=== PATIENT | male | born 1955 | race Caucasian/White ===

== ENCOUNTER → 2017-11-17 | Outpatient (CLI) | payer OTHER ==
[~2017-11-17] MED LIST: ALLO300 PO
[2017-11-17 13:36] LABS: Alanine Aminotransfer (ALT/SGP 16 U/L (12-78); Albumin, Blood 3.4 g/dL (3.4-5.0); Albumin/Globulin Ratio 0.8 (0.8-1.8); Alk Phos 81 U/L (50-136); Anion Gap 9 mmol/L (6-16); Aspartate Aminotrans (AST/SGOT 14 U/L (12-37); Bilirubin, Total 0.5 mg/dL (0.1-1.0); Blood Urea Nitrogen 15 mg/dL (8-24); Bun/Creatinine Ratio 20.1 (12.0-20.0); CO2, Blood 24 mmol/L (21-32); Chloride, Blood 107 mmol/L (98-108); Creatinine, Blood 0.75 mg/dL (0.60-1.20); Globulin, Blood 4.2 g/dL (2.2-4.0); Glomerular Filtration Rate >60 (60-); Glucose, Blood 95 mg/dL (70-99); Lactate Dehydrogenase (Ld),Bld 225 U/L (100-240); Magnesium, Blood 2.1 mg/dL (1.6-2.4); Potassium, Blood 4.4 mmol/L (3.5-5.5); Sodium, Blood 140 mmol/L (136-145); Total Protein, Blood 7.6 g/dL (6.4-8.2)
== END ==
LOC: LAB SHORT 12:45
PROVIDERS: Internal Medicine Hematology & Oncology
DX: C85.10 Unspecified B-cell lymphoma, unspecified site (principal)
CPT/HCPCS: 80053; 83615; 83735

== ENCOUNTER → 2017-12-16 | Outpatient (CLI) | payer OTHER ==
[2017-12-16 17:18] LABS: Free Thyroxine 0.9 ng/dL (0.70-1.60); Thyroid Stimulating Hormone 7.42 uIU/mL (0.360-4.800)
[2017-12-17 18:23] LABS: IgG 249 mg/dL (758-1612); IgM 2940 mg/dL (40-230)
[2017-12-17 18:40] LABS: IgA 13 mg/dL (71-397)
[2017-12-19 12:21] LABS: Albumin 3.5 g/dL (3.3-4.8); Monoclonal Protein 1.9 g/dL; Monoclonal Protien % 25.2 %; Protein, Total 7.6 g/dL (6.1-7.8)
[2017-12-20 09:04] LABS: Viscosity 1.7 cP (1.1-1.8)
== END ==
LOC: LAB SHORT 10:30
PROVIDERS: Internal Medicine Hematology & Oncology
DX: C85.10 Unspecified B-cell lymphoma, unspecified site (principal); C88.0 Waldenstrom macroglobulinemia; R53.81 Other malaise
CPT/HCPCS: 36415; 82784; 84165; 84439; 84443; 85810

== ENCOUNTER → 2018-03-17 | Outpatient (CLI) | payer OTHER ==
[2018-03-17 16:55] LABS: Alanine Aminotransfer (ALT/SGP 20 U/L (12-78); Albumin, Blood 3.6 g/dL (3.4-5.0); Albumin/Globulin Ratio 0.8 (0.8-1.8); Alk Phos 90 U/L (50-136); Anion Gap 5 mmol/L (6-16); Aspartate Aminotrans (AST/SGOT 14 U/L (12-37); Bilirubin, Total 0.5 mg/dL (0.1-1.0); Blood Urea Nitrogen 14 mg/dL (8-24); Bun/Creatinine Ratio 15.3 (12.0-20.0); CO2, Blood 28 mmol/L (21-32); Calcium, Blood 9.2 mg/dL (8.5-10.1); Chloride, Blood 105 mmol/L (98-108); Creatinine, Blood 0.91 mg/dL (0.60-1.20); Globulin, Blood 4.6 g/dL (2.2-4.0); Glomerular Filtration Rate >60 (60-); Glucose, Blood 82 mg/dL (70-99); Potassium, Blood 4.3 mmol/L (3.5-5.5); Sodium, Blood 138 mmol/L (136-145); Total Protein, Blood 8.2 g/dL (6.4-8.2)
== END | disposition home or self-care (01) ==
LOC: LAB 10:36 → LAB SHORT 10:36
PROVIDERS: Internal Medicine Hematology & Oncology
DX: C88.0 Waldenstrom macroglobulinemia (principal)
CPT/HCPCS: 80053; 85810

== ENCOUNTER → 2018-03-27 | Outpatient (CLI) | payer OTHER ==
[2018-03-29 05:50] LABS: IMMUNOGLOBULIN A, QN, SERUM 13 mg/dL (61-437); IMMUNOGLOBULIN M, QN, SERUM 3737 mg/dL (20-172)
[2018-03-29 15:08] LABS: IMMUNOGLOBULIN G, QN, SERUM 245 mg/dL (700-1600)
== END ==
LOC: LAB SHORT 10:00 → LAB 10:00
PROVIDERS: Internal Medicine Hematology & Oncology
DX: C88.0 Waldenstrom macroglobulinemia (principal)
CPT/HCPCS: 82784; 82787

== ENCOUNTER → 2018-05-25 | Outpatient (CLI) | payer OTHER ==
[2018-05-25 18:46] LABS: Alanine Aminotransfer (ALT/SGP 15 U/L (12-78); Albumin, Blood 3.5 g/dL (3.4-5.0); Albumin/Globulin Ratio 0.9 (0.8-1.8); Alk Phos 79 U/L (50-136); Anion Gap 6 mmol/L (6-16); Aspartate Aminotrans (AST/SGOT 23 U/L (12-37); Bilirubin, Total 0.8 mg/dL (0.1-1.0); Blood Urea Nitrogen 14 mg/dL (8-24); Bun/Creatinine Ratio 17.1 (12.0-20.0); CO2, Blood 27 mmol/L (21-32); Calcium, Blood 8.9 mg/dL (8.5-10.1); Chloride, Blood 108 mmol/L (98-108); Creatinine, Blood 0.82 mg/dL (0.60-1.20); Globulin, Blood 4.1 g/dL (2.2-4.0); Glomerular Filtration Rate >60 (60-); Glucose, Blood 94 mg/dL (70-99); Sodium, Blood 141 mmol/L (136-145); Total Protein, Blood 7.6 g/dL (6.4-8.2)
== END | disposition home or self-care (01) ==
LOC: LAB SHORT 08:55 → LAB 08:55
PROVIDERS: Internal Medicine Hematology & Oncology
DX: C88.0 Waldenstrom macroglobulinemia (principal)
CPT/HCPCS: 80053

== ENCOUNTER → 2018-06-20 | Outpatient (CLI) | payer OTHER ==
[2018-06-20 17:13] LABS: Alanine Aminotransfer (ALT/SGP 21 U/L (12-78); Albumin, Blood 3.4 g/dL (3.4-5.0); Albumin/Globulin Ratio 0.9 (0.8-1.8); Alk Phos 78 U/L (50-136); Anion Gap 10 mmol/L (6-16); Aspartate Aminotrans (AST/SGOT 16 U/L (12-37); Bilirubin, Total 0.3 mg/dL (0.1-1.0); Blood Urea Nitrogen 12 mg/dL (8-24); Bun/Creatinine Ratio 14.9 (12.0-20.0); CO2, Blood 23 mmol/L (21-32); Calcium, Blood 8.6 mg/dL (8.5-10.1); Chloride, Blood 108 mmol/L (98-108); Creatinine, Blood 0.81 mg/dL (0.60-1.20); Globulin, Blood 3.7 g/dL (2.2-4.0); Glomerular Filtration Rate >60 (60-); Glucose, Blood 87 mg/dL (70-99); Sodium, Blood 141 mmol/L (136-145); Total Protein, Blood 7.1 g/dL (6.4-8.2)
[2018-06-22 06:15] LABS: IMMUNOGLOBULIN A, QN, SERUM 10 mg/dL (61-437); IMMUNOGLOBULIN G, QN, SERUM 200 mg/dL (700-1600); IMMUNOGLOBULIN M, QN, SERUM 2437 mg/dL (20-172)
[2018-06-23 13:09] LABS: IMMUNOGLOBULIN G, QN, SERUM 222 mg/dL (700-1600)
== END | disposition home or self-care (01) ==
LOC: LAB SHORT 14:20 → LAB 14:20
PROVIDERS: Internal Medicine Hematology & Oncology
DX: C88.0 Waldenstrom macroglobulinemia (principal)
CPT/HCPCS: 80053; 82784

== ENCOUNTER → 2018-07-19 | Outpatient (CLI) | payer OTHER ==
[2018-07-21 06:14] LABS: IMMUNOGLOBULIN A, QN, SERUM 10 mg/dL (61-437); IMMUNOGLOBULIN G, QN, SERUM 166 mg/dL (700-1600); IMMUNOGLOBULIN M, QN, SERUM 2069 mg/dL (20-172)
== END | disposition home or self-care (01) ==
LOC: LAB 15:35 → LAB SHORT 15:35
PROVIDERS: Internal Medicine Hematology & Oncology
DX: C88.0 Waldenstrom macroglobulinemia (principal)
CPT/HCPCS: 82784; 82787; 85810

== ENCOUNTER → 2018-08-09 | Outpatient (CLI) | payer OTHER ==
[2018-08-11 07:16] LABS: IMMUNOGLOBULIN A, QN, SERUM 11 mg/dL (61-437); IMMUNOGLOBULIN G, QN, SERUM 166 mg/dL (700-1600); IMMUNOGLOBULIN M, QN, SERUM 1979 mg/dL (20-172)
== END | disposition home or self-care (01) ==
LOC: LAB 10:00 → LAB SHORT 10:00
PROVIDERS: Internal Medicine Hematology & Oncology
DX: C88.0 Waldenstrom macroglobulinemia (principal)
CPT/HCPCS: 82784

== ENCOUNTER → 2018-12-13 | Outpatient (CLI) | payer OTHER ==
[2018-12-13 16:55] LABS: Alanine Aminotransfer (ALT/SGP 24 U/L (12-78); Albumin, Blood 3.8 g/dL (3.4-5.0); Albumin/Globulin Ratio 1.2 (0.8-1.8); Alk Phos 93 U/L (50-136); Anion Gap 7 mmol/L (6-16); Aspartate Aminotrans (AST/SGOT 14 U/L (12-37); Bilirubin, Total 0.6 mg/dL (0.1-1.0); Blood Urea Nitrogen 15 mg/dL (8-24); Bun/Creatinine Ratio 16.7 (12.0-20.0); CO2, Blood 24 mmol/L (21-32); Calcium, Blood 8.7 mg/dL (8.5-10.1); Chloride, Blood 107 mmol/L (98-108); Globulin, Blood 3.1 g/dL (2.2-4.0); Glomerular Filtration Rate >60 (60-); Glucose, Blood 95 mg/dL (70-99); Potassium, Blood 4.5 mmol/L (3.5-5.5); Sodium, Blood 138 mmol/L (136-145); Total Protein, Blood 6.9 g/dL (6.4-8.2)
[2018-12-15 07:10] LABS: IMMUNOGLOBULIN G, QN, SERUM 202 mg/dL (700-1600); IMMUNOGLOBULIN M, QN, SERUM 1871 mg/dL (20-172)
== END | disposition home or self-care (01) ==
LOC: LAB 15:07 → LAB SHORT 15:07
PROVIDERS: Internal Medicine Hematology & Oncology
DX: C88.0 Waldenstrom macroglobulinemia (principal)
CPT/HCPCS: 80053; 82784

== ENCOUNTER → 2019-03-14 | Outpatient (CLI) | payer OTHER ==
[2019-03-14 18:53] LABS: Alanine Aminotransfer (ALT/SGP 26 U/L (12-78); Albumin/Globulin Ratio 1.2 (0.8-1.8); Alk Phos 112 U/L (50-136); Anion Gap 3 mmol/L (6-16); Aspartate Aminotrans (AST/SGOT 14 U/L (12-37); Bilirubin, Total 0.7 mg/dL (0.1-1.0); Blood Urea Nitrogen 14 mg/dL (8-24); Bun/Creatinine Ratio 18.2 (12.0-20.0); CO2, Blood 30 mmol/L (21-32); Calcium, Blood 9.6 mg/dL (8.5-10.1); Chloride, Blood 106 mmol/L (98-108); Creatinine, Blood 0.77 mg/dL (0.60-1.20); Globulin, Blood 3.4 g/dL (2.2-4.0); Glomerular Filtration Rate >60 (60-); Glucose, Blood 80 mg/dL (70-99); Potassium, Blood 4.7 mmol/L (3.5-5.5); Sodium, Blood 139 mmol/L (136-145); Total Protein, Blood 7.4 g/dL (6.4-8.2)
== END | disposition home or self-care (01) ==
LOC: LAB 18:07 → LAB SHORT 18:07
PROVIDERS: Internal Medicine Hematology & Oncology
DX: C85.10 Unspecified B-cell lymphoma, unspecified site (principal)
CPT/HCPCS: 80053

== ENCOUNTER → 2019-05-16 | Outpatient (CLI) | payer OTHER ==
[2019-05-18 06:08] LABS: IMMUNOGLOBULIN A, QN, SERUM 14 mg/dL (61-437); IMMUNOGLOBULIN G, QN, SERUM 309 mg/dL (700-1600); IMMUNOGLOBULIN M, QN, SERUM 2014 mg/dL (20-172)
== END | disposition home or self-care (01) ==
LOC: LAB 15:30 → LAB SHORT 15:30
PROVIDERS: Internal Medicine Hematology & Oncology
DX: C88.0 Waldenstrom macroglobulinemia (principal)
CPT/HCPCS: 82784; 85810

== ENCOUNTER → 2019-06-20 | Outpatient (CLI) | payer OTHER ==
[2019-06-21 05:08] LABS: IMMUNOGLOBULIN A, QN, SERUM 13 mg/dL (61-437); IMMUNOGLOBULIN G, QN, SERUM 288 mg/dL (700-1600); IMMUNOGLOBULIN M, QN, SERUM 1976 mg/dL (20-172)
[2019-06-24 20:05] LABS: IMMUNOGLOBULIN G, QN, SERUM 281 mg/dL (700-1600)
== END | disposition home or self-care (01) ==
LOC: LAB 10:16 → LAB SHORT 10:16
PROVIDERS: Internal Medicine Hematology & Oncology
DX: C88.0 Waldenstrom macroglobulinemia (principal)
CPT/HCPCS: 82784; 82787

== ENCOUNTER → 2019-08-07 | Outpatient (CLI) | payer OTHER ==
[2019-08-09 06:08] LABS: IMMUNOGLOBULIN A, QN, SERUM 11 mg/dL (61-437); IMMUNOGLOBULIN G, QN, SERUM 241 mg/dL (700-1600); IMMUNOGLOBULIN M, QN, SERUM 1832 mg/dL (20-172)
== END | disposition home or self-care (01) ==
LOC: LAB 15:20 → LAB SHORT 15:20
PROVIDERS: Internal Medicine Hematology & Oncology
DX: C85.10 Unspecified B-cell lymphoma, unspecified site (principal)
CPT/HCPCS: 82784; 85810

== ENCOUNTER → 2019-09-03 | Outpatient (CLI) | payer OTHER ==
[2019-09-03 16:51] LABS: Magnesium, Blood 1.9 mg/dL (1.6-2.4)
[2019-09-03 16:52] LABS: Alanine Aminotransfer (ALT/SGP 24 U/L (12-78); Albumin, Blood 3.6 g/dL (3.4-5.0); Albumin/Globulin Ratio 1.2 (0.8-1.8); Alk Phos 91 U/L (50-136); Anion Gap 5 mmol/L (6-16); Aspartate Aminotrans (AST/SGOT 19 U/L (12-37); Bilirubin, Total 0.7 mg/dL (0.1-1.0); Blood Urea Nitrogen 13 mg/dL (8-24); Bun/Creatinine Ratio 16.5 (12.0-20.0); CO2, Blood 28 mmol/L (21-32); Calcium, Blood 9.2 mg/dL (8.5-10.1); Chloride, Blood 105 mmol/L (98-108); Creatinine, Blood 0.79 mg/dL (0.60-1.20); Globulin, Blood 3.1 g/dL (2.2-4.0); Glomerular Filtration Rate >60 (60-); Glucose, Blood 80 mg/dL (70-99); Potassium, Blood 4.8 mmol/L (3.5-5.5); Sodium, Blood 138 mmol/L (136-145); Total Protein, Blood 6.7 g/dL (6.4-8.2)
== END | disposition home or self-care (01) ==
LOC: LAB 13:55 → LAB SHORT 13:55
PROVIDERS: Internal Medicine Hematology & Oncology
DX: C88.0 Waldenstrom macroglobulinemia (principal)
CPT/HCPCS: 80053; 83735

== ENCOUNTER → 2020-01-10 | Outpatient (CLI) | payer OTHER ==
[2020-01-10 16:08] LABS: Alanine Aminotransfer (ALT/SGP 14 U/L (12-78); Albumin, Blood 3.7 g/dL (3.4-5.0); Albumin/Globulin Ratio 1.2 (0.8-1.8); Alk Phos 106 U/L (50-136); Anion Gap 3 mmol/L (6-16); Aspartate Aminotrans (AST/SGOT 9 U/L (12-37); Bilirubin, Total 0.3 mg/dL (0.1-1.0); Blood Urea Nitrogen 14 mg/dL (8-24); Bun/Creatinine Ratio 19.2 (12.0-20.0); CO2, Blood 27 mmol/L (21-32); Calcium, Blood 9.2 mg/dL (8.5-10.1); Chloride, Blood 107 mmol/L (98-108); Creatinine, Blood 0.73 mg/dL (0.60-1.20); Glomerular Filtration Rate >60 (60-); Glucose, Blood 84 mg/dL (70-99); Potassium, Blood 4.6 mmol/L (3.5-5.5); Sodium, Blood 137 mmol/L (136-145); Total Protein, Blood 6.7 g/dL (6.4-8.2)
[2020-01-12 05:09] LABS: IMMUNOGLOBULIN A, QN, SERUM 18 mg/dL (61-437); IMMUNOGLOBULIN G, QN, SERUM 371 mg/dL (700-1600); IMMUNOGLOBULIN M, QN, SERUM 975 mg/dL (20-172)
== END | disposition home or self-care (01) ==
LOC: LAB SHORT 11:00 → LAB 11:00
PROVIDERS: Internal Medicine Hematology & Oncology
DX: C88.0 Waldenstrom macroglobulinemia (principal)
CPT/HCPCS: 80053

== ENCOUNTER → 2020-07-18 | Outpatient (CLI) | payer OTHER ==
[2020-07-18 10:36] LABS: BASOPHILS ABSOLUTE AUTO 0.02 K/mm3 (0.00-0.23); BASOPHILS PERCENT AUTO 0 % (0-2); EOSINOPHILS ABSOLUTE AUTO 0.06 K/mm3 (0.00-0.68); EOSINOPHILS PERCENT AUTO 1 % (0-6); Hematocrit 50.4 % (37.0-53.0); Hemoglobin 16.8 g/dL (13.5-17.5); IMMATURE GRAN ABSOLUTE AUTO 0.03 K/mm3 (0.00-0.10); IMMATURE GRAN PERCENT AUTO 0 % (0-1); LYMPHOCYTES ABSOLUTE AUTO 1.27 K/mm3 (0.84-5.20); LYMPHOCYTES PERCENT AUTO 14 % (21-46); MONOCYTES ABSOLUTE AUTO 1.16 K/mm3 (0.16-1.47); MONOCYTES PERCENT AUTO 13 % (4-13); Mean Corpuscular HGB 32.7 pg (26.0-34.0); Mean Corpuscular HGB Conc 33.3 g/dL (31.5-36.5); Mean Corpuscular Volume 98 fL (80-100); NEUTROPHILS ABSOLUTE AUTO 6.77 K/mm3 (1.96-9.15); NEUTROPHILS PERCENT AUTO 73 % (41-73); RDW Coefficient Variation 13.1 % (11.7-14.2); RDW Standard Deviation 47.1 fL (35.1-46.3); Red Blood Cell Count 5.14 M/mm3 (4.30-5.90); White Blood Cell Count 9.31 K/mm3 (4.00-11.30)
[2020-07-18 10:47] LABS: Alanine Aminotransfer (ALT/SGP 24 U/L (12-78); Albumin, Blood 3.9 g/dL (3.4-5.0); Alk Phos 114 U/L (40-126); Anion Gap 9 mmol/L (6-16); Aspartate Aminotrans (AST/SGOT 11 U/L (12-37); Bilirubin, Total 0.3 mg/dL (0.1-1.0); Blood Urea Nitrogen 15 mg/dL (8-24); Bun/Creatinine Ratio 16.5 (12.0-20.0); CO2, Blood 26 mmol/L (21-32); Calcium, Blood 9.2 mg/dL (8.5-10.1); Chloride, Blood 103 mmol/L (98-108); Creatinine, Blood 0.91 mg/dL (0.60-1.20); Globulin, Blood 3.8 g/dL (2.2-4.0); Glomerular Filtration Rate >60 (60-); Glucose, Blood 104 mg/dL (70-99); Potassium, Blood 4.4 mmol/L (3.5-5.5); Sodium, Blood 138 mmol/L (136-145); Total Protein, Blood 7.7 g/dL (6.4-8.2)
[2020-07-18 10:52] LABS: Mean Platelet Volume 10.3 fL (9.1-12.4)
[2020-07-18 11:38] LABS: Platelet Count 125 K/mm3 (150-400)
== END | disposition home or self-care (01) ==
LOC: LAB SHORT 10:31 → LAB EV 10:31
PROVIDERS: Physician Assistant
DX: L03.211 Cellulitis of face (principal)
CPT/HCPCS: 80053; 85025

== ENCOUNTER → 2020-08-21 | Outpatient (CLI) | payer OTHER ==
[2020-08-21 15:55] LABS: Alanine Aminotransfer (ALT/SGP 23 U/L (12-78); Albumin/Globulin Ratio 1.4 (0.8-1.8); Alk Phos 102 U/L (50-136); Anion Gap 6 mmol/L (6-16); Aspartate Aminotrans (AST/SGOT 15 U/L (12-37); Bilirubin, Total 0.5 mg/dL (0.1-1.0); Blood Urea Nitrogen 12 mg/dL (8-24); Bun/Creatinine Ratio 14.4 (12.0-20.0); CO2, Blood 27 mmol/L (21-32); Chloride, Blood 108 mmol/L (98-108); Creatinine, Blood 0.84 mg/dL (0.60-1.20); Globulin, Blood 2.8 g/dL (2.2-4.0); Glomerular Filtration Rate >60 (60-); Glucose, Blood 94 mg/dL (70-99); Potassium, Blood 4.7 mmol/L (3.5-5.5); Sodium, Blood 141 mmol/L (136-145); Thyroxine (T4) 9.8 ug/dL (4.5-12.1); Total Protein, Blood 6.8 g/dL (6.4-8.2)
== END | disposition home or self-care (01) ==
LOC: LAB 13:35 → LAB SHORT 13:35
PROVIDERS: Internal Medicine Hematology & Oncology
DX: C85.10 Unspecified B-cell lymphoma, unspecified site (principal)
CPT/HCPCS: 80053; 82787; 84100; 84436; 84443; 85810

== ENCOUNTER → 2021-04-16 | Outpatient (CLI) | payer OTHER ==
[2021-04-16 21:15] LABS: Alanine Aminotransfer (ALT/SGP 23 U/L (12-78); Albumin/Globulin Ratio 1.2 (0.8-1.8); Alk Phos 96 U/L (50-136); Anion Gap 6 mmol/L (6-16); Aspartate Aminotrans (AST/SGOT 20 U/L (12-37); Bilirubin, Total 0.6 mg/dL (0.1-1.0); Blood Urea Nitrogen 14 mg/dL (8-24); Bun/Creatinine Ratio 15.5 (12.0-20.0); CO2, Blood 24 mmol/L (21-32); Calcium, Blood 9.3 mg/dL (8.5-10.1); Chloride, Blood 108 mmol/L (98-108); Creatinine, Blood 0.91 mg/dL (0.60-1.20); Globulin, Blood 3.3 g/dL (2.2-4.0); Glomerular Filtration Rate >60 (60-); Glucose, Blood 84 mg/dL (70-99); Phosphorus, Blood 3.9 mg/dL (2.5-4.9); Potassium, Blood 5.1 mmol/L (3.5-5.5); Sodium, Blood 138 mmol/L (136-145); Total Protein, Blood 7.3 g/dL (6.4-8.2)
[2021-04-18 08:09] LABS: IMMUNOGLOBULIN A, QN, SERUM 9 mg/dL (61-437); IMMUNOGLOBULIN G, QN, SERUM 268 mg/dL (603-1613); IMMUNOGLOBULIN M, QN, SERUM 1221 mg/dL (20-172)
== END | disposition home or self-care (01) ==
LOC: LAB 20:01 → LAB SHORT 20:01
PROVIDERS: Internal Medicine Hematology & Oncology
DX: C85.10 Unspecified B-cell lymphoma, unspecified site (principal)
CPT/HCPCS: 80053; 82784; 84100; 85810

== ENCOUNTER → 2021-07-24 | Outpatient (CLI) | payer OTHER ==
[2021-07-28 16:15] LABS: A/G RATIO 1.2 (0.7-1.7); ALBUMIN 3.7 g/dL (2.9-4.4); ALPHA-1-GLOBULIN 0.2 g/dL (0.0-0.4); ALPHA-2-GLOBULIN 0.7 g/dL (0.4-1.0); GAMMA GLOBULIN 1.2 g/dL (0.4-1.8); GLOBULIN, TOTAL 3.2 g/dL (2.2-3.9); IMMUNOGLOBULIN A, QN, SERUM 13 mg/dL (61-437); IMMUNOGLOBULIN G, QN, SERUM 243 mg/dL (603-1613); IMMUNOGLOBULIN M, QN, SERUM 1582 mg/dL (20-172); M-SPIKE 0.7 g/dL (Not Observed); PROTEIN, TOTAL, SERUM 6.9 g/dL (6.0-8.5)
== END | disposition home or self-care (01) ==
LOC: LAB 14:55 → LAB SHORT 14:55
PROVIDERS: Internal Medicine Hematology & Oncology
DX: C85.10 Unspecified B-cell lymphoma, unspecified site (principal)
CPT/HCPCS: 82784; 84165; 86334

== ENCOUNTER 2022-06-01 06:15 | Day surgery (SDC) | payer OTHER ==
[~2022-06-01] VITALS: Ht 177.8 cm; Wt 78.8 kg
[~2022-06-01 06:15] MED LIST changes: +Acetaminophen650 M1 PO; +DICL75ER PO
--- NOTE | 2022-06-01 07:25 | NUR ---
CLIP DONE ON ABDOMEN. PATIENT HAS A TINY RASH FROM TRUSS AND UNDERWEAR. Ambulatory in Day Surgery. History, Chart, Medications and Allergies reviewed before start of procedure. Patient confirms NPO status and agrees with scheduled surgery. Patient States Post-Procedure ride home has been arranged.
--- NOTE | 2022-06-01 09:02 | NUR ---
06/01/22 0902 Sarina Du PRIOR TO PREPPING PATIENTS ABDOMEN NOTED REDNESS AND IRRITATION FROM BELOW THE NIPPLE LINE TO THE GROIN POSSIBLY FROM SHAVING PRIOR TO ARRIVING IN THE OR, NOTIFIED.
--- NOTE | 2022-06-01 11:55 | NUR ---
VERBALIZED UNDERSTANDING OF DC INSTRUCTIONS. REPORT TO LAURENT RANGEL.
--- NOTE | 2022-06-01 12:20 | NUR ---
PATIENT UP TO BR WITH STEADY GAIT. TOLERATED PO FLUIDS WELL. DENIES NAUSEA. C/O 3/10 PAIN TO LEFT GROIN. INCISION SITES X3 TO ABD NOTED TO BE CLEAR WITH DERMABOND CLOSURE. NO VISIBLE DRAINAGE, SWELLING, ERYTHEMA OR BRUISING NOTED. PATIENT STATES HE IS "PRETTY CLOSE" TO FEELING LIKE HE WANTS TO DISCHARGE HOME. PATIENT REPORTS THAT HE WAS ABLE TO URINATE IN BR.
--- NOTE | 2022-06-01 12:22 | NUR ---
Discharge instructions reviewed with patient. Patient verbalizes understanding. Copy given to patient to take home. Patient States Post-Procedure ride home has been arranged with his .
--- NOTE | 2022-06-01 12:45 | NUR ---
1240- PATIENT STATES HE IS READY TO DISCHARGE HOME. AT BEDSIDE. VSS.
== END 2022-06-01 12:45 | disposition home or self-care (01) ==
LOC: ORSCMMR 06:15 → ORD 07:30 → ORSCMMR 07:30
PROVIDERS: Surgery
PROC: 0YU64JZ Supplement Left Inguinal Region with Synthetic Substitute, Percutaneous Endoscopic Approach (ICD-10-PCS; principal; 2022-06-01 08:15)
PROC: 8E0W4CZ Robotic Assisted Procedure of Trunk Region, Percutaneous Endoscopic Approach (ICD-10-PCS; principal; 2022-06-01 08:15)
DX: K40.90 Unilateral inguinal hernia, without obstruction or gangrene, not specified as recurrent (principal); F17.210 Nicotine dependence, cigarettes, uncomplicated; D64.9 Anemia, unspecified; D61.818 Other pancytopenia
CPT/HCPCS: 49650; S2900; C1781; J0690; J1100; J2250; J2405; J2704; J2795; J3010; J7120

== ENCOUNTER 2025-01-28 09:11 | Day surgery (SDC) | payer MEDICARE ==
[2025-01-29 15:29] LABS: Mean Corpuscular HGB 33.6 pg (26.0-34.0); Mean Corpuscular HGB Conc 32.4 g/dL (31.5-36.5); Mean Corpuscular Volume 104 fL (80-100); Mean Platelet Volume 10.6 fL (9.1-12.4); NRBC ABSOLUTE 0.02 K/mm3 (0.00-0.02); RDW Coefficient Variation 21.9 % (11.7-14.2); RDW Standard Deviation 78.3 fL (35.1-46.3); White Blood Cell Count 1.96 K/mm3 (4.00-11.30)
[2025-01-29 15:35] LABS: Hematocrit 14.5 % (37.0-53.0); Hemoglobin 4.7 g/dL (13.5-17.5)
[2025-01-29 15:36] LABS: Platelet Count 19 K/mm3 (150-400)
[2025-01-29 15:59] LABS: BAND PERCENT MAN 1 % (0-8); BASOPHILS PERCENT MAN 0 % (0-2); EOSINOPHILS ABSOLUTE MAN 0.01 K/mm3 (0.00-0.68); EOSINOPHILS PERCENT MAN 1 % (0-6); LYMPHOCYTES ABSOLUTE MAN 0.86 K/mm3 (0.84-5.20); LYMPHOCYTES PERCENT MAN 44 % (21-46); METAMYELOCYTE ABSOLUTE MAN 0.01 K/mm3 (0.00-0.00); METAMYELOCYTE PERCENT MAN 1 % (0-0); MONOCYTES ABSOLUTE MAN 0.11 K/mm3 (0.16-1.47); MONOCYTES PERCENT MAN 6 % (4-13); NEUTROPHILS ABSOLUTE MAN 0.94 K/mm3 (1.96-9.15); SEG NEUTROPHILS PERCENT MAN 47 % (41-73); TOTAL CELLS COUNTED 100
[2025-01-30] MEDS ORDERED: Diclofenac Sodi50 MG PO (13:58)
== END 2025-01-29 22:56 | disposition home or self-care (01) ==
LOC: ORSCMMR 09:11 → LAB 09:11 → LAB SHORT 09:11 → ORSCMMR 09:12 → EDSTATUS 16:37 → ORSCMMR 01-29 22:56 → LAB 01-29 22:56
PROVIDERS: Internal Medicine Hematology & Oncology
DX: C85.10 Unspecified B-cell lymphoma, unspecified site (principal)
CPT/HCPCS: 36415; 85025; 86850; 86900; 86901

== ENCOUNTER 2025-01-29 18:38 | Observation (INO) | payer MEDICARE ==
[~2025-01-29] VITALS: Ht 177.8 cm; Wt 69.3 kg
[2025-01-29 19:23] LABS: Mean Corpuscular HGB 32.7 pg (26.0-34.0); Mean Corpuscular HGB Conc 32.5 g/dL (31.5-36.5); Mean Corpuscular Volume 101 fL (80-100); Mean Platelet Volume 10.1 fL (9.1-12.4); NRBC ABSOLUTE 0.02 K/mm3 (0.00-0.02); NRBC Auto 1.1 /100 WBC (0.0-0.2); RDW Coefficient Variation 22.3 % (11.7-14.2); White Blood Cell Count 1.89 K/mm3 (4.00-11.30)
[2025-01-29 19:26] LABS: Hematocrit 15.1 % (37.0-53.0)
[2025-01-29 19:27] LABS: Hemoglobin 4.9 g/dL (13.5-17.5); Platelet Count 21 K/mm3 (150-400)
[2025-01-29 19:41] LABS: BASOPHILS PERCENT MAN 0 % (0-2); EOSINOPHILS PERCENT MAN 0 % (0-6); LYMPHOCYTES ABSOLUTE MAN 0.69 K/mm3 (0.84-5.20); LYMPHOCYTES PERCENT MAN 37 % (21-46); MONOCYTES ABSOLUTE MAN 0.13 K/mm3 (0.16-1.47); MONOCYTES PERCENT MAN 7 % (4-13); NEUTROPHILS ABSOLUTE MAN 1.05 K/mm3 (1.96-9.15); SEG NEUTROPHILS PERCENT MAN 56 % (41-73); TOTAL CELLS COUNTED 100
[2025-01-29 20:11] LABS: Albumin, Blood 2.3 g/dL (3.4-5.0); Albumin/Globulin Ratio 0.3 (0.8-1.8); Bilirubin, Total 0.5 mg/dL (0.1-1.0); Bun/Creatinine Ratio 26.4 (12.0-20.0); Calcium, Blood 8.8 mg/dL (8.5-10.1); Creatinine, Blood 0.95 mg/dL (0.60-1.20); Globulin, Blood 8.5 g/dL (2.2-4.0); Potassium, Blood 3.7 mmol/L (3.5-5.5); Total Protein, Blood 10.8 g/dL (6.4-8.2)
[2025-01-29 20:11] LABS: International Normalized Ratio 1.07; Prothrombin Time Results 11.4 Sec (9.7-11.5)
[2025-01-29] MEDS ORDERED: FLU VACC TS2024-25(6MOS UP)/PF 45 MCG/0.5 ML SYRINGE IM ONE (20:30)
[2025-01-29 22:48] VITALS: BP 115/73
--- NOTE | 2025-01-29 23:03 | NUR ---
ADMIT NOTE 69 YR OLD MALE ADMITTED TO FLOOR FROM THE ED WITH DX OF ANEMIA. ALERT AND ORIENTED. ACOMPANIED HIM BUT LEFT SOON AFTER ARRIVING IN THE ROOM. PT DENIED PAIN. 1ST UNIT OF PRBC INFUSED SOON AFTER ARRIVAL, 2ND OF 2 NOW ORDERED FOR INFUSION. ORIENTED TO USE OF CALL LIGHT. RAILS UP X 2, BED IN LOW POSITION AND CALL LIGHT IN REACH FOR SAFETY. UP AD ESTEBAN. RESPS EVEN. WILL MONITOR
[2025-01-29 23:31] VITALS: BP 116/70
[2025-01-29 23:47] VITALS: BP 119/71
[2025-01-30] VITALS (15 sets, daily range): BP systolic 110–138; BP diastolic 62–76
--- NOTE | 2025-01-30 02:12 | NUR ---
2ND UNIT OF PRBCS INFUSED. CHEERFUL AFFECT. A/O X 4. UP TO BATHROOM TO VOID. NO NOTED S/S ADVERSE REACTION TO BLOOD. WILL DRAW LABS IN 1/2 HR FOR H/H. CALL LIGHT IN REACH.
--- NOTE | 2025-01-30 03:21 | NUR ---
MANAGER BEHAVIORAL SUMMARY VSS. WAS ADMITTED EARLIER IN THE SHIFT WITH DX OF ANEMIA. HGB WAS 4.9, RECEIVED 2 UNITS OF PRBC, ONE IN THE ED AND THE SECOND WHILE ON THE FLOOR. TOLERATED WELL. LAB DRAW LATER TO FOLLOW UP WITH H/H. COOPERATIVE. HAS MEIR RESTING QUIETLY AT INTERVALS DURING BLOOD INFUSION. UP AD ESTEBAN. ABLE TO REPOSITION SELF IN BED FOR COMFORT. CALL LIGHT IN REACH, RAILS UP X 2 AND BED IN LOW POSITION FOR SAFETY. WILL CONT TO MONITOR
[2025-01-30 04:19] LABS: Mean Corpuscular HGB 33.6 pg (26.0-34.0); Mean Corpuscular HGB Conc 34.2 g/dL (31.5-36.5); Mean Corpuscular Volume 98 fL (80-100); Mean Platelet Volume 10.2 fL (9.1-12.4); NRBC ABSOLUTE 0.03 K/mm3 (0.00-0.02); NRBC Auto 1.6 /100 WBC (0.0-0.2); RDW Standard Deviation 66.1 fL (35.1-46.3); Red Blood Cell Count 1.52 M/mm3 (4.30-5.90); White Blood Cell Count 1.86 K/mm3 (4.00-11.30)
[2025-01-30 04:48] LABS: Hematocrit 14.9 % (37.0-53.0); Hemoglobin 5.1 g/dL (13.5-17.5); Platelet Count 17 K/mm3 (150-400)
[2025-01-30 04:56] LABS: BAND PERCENT MAN 2 % (0-8); BASOPHILS PERCENT MAN 0 % (0-2); EOSINOPHILS PERCENT MAN 0 % (0-6); LYMPHOCYTES % ATYPICAL MANUAL 4 % (0-0); LYMPHOCYTES ABSOLUTE MAN 0.81 K/mm3 (0.84-5.20); LYMPHOCYTES PERCENT MAN 40 % (21-46); MONOCYTES ABSOLUTE MAN 0.18 K/mm3 (0.16-1.47); MONOCYTES PERCENT MAN 10 % (4-13); MYELOCYTE ABSOLUTE MAN 0.03 K/mm3 (0.00-0.00); MYELOCYTE PERCENT MAN 2 % (0-0); NEUTROPHILS ABSOLUTE MAN 0.81 K/mm3 (1.96-9.15); SEG NEUTROPHILS PERCENT MAN 42 % (41-73); TOTAL CELLS COUNTED 50
--- NOTE | 2025-01-30 05:11 | NUR ---
MD NOTIFIED OF HGB 5.1 POST 2 UNITS OF PRBC. MD NOTIFIED, ORDERED TO WAIT UNTIL NEXT DRAW AND TO ASSESS H/H LEVEL AT THAT TIME PT HAD JUST FINISHED 2ND UNIT AROUND AN HOUR AGO. NEXT DRAW AT 0800.
[2025-01-30 05:24] LABS: Bun/Creatinine Ratio 27.6 (12.0-20.0); Calcium, Blood 7.9 mg/dL (8.5-10.1); Creatinine, Blood 0.8 mg/dL (0.60-1.20); Potassium, Blood 3.8 mmol/L (3.5-5.5)
[2025-01-30] MEDS ORDERED: NS 500 ML IV SCH (10:35)
[2025-01-30] MEDS ORDERED: Diclofenac Sodi50 MG PO (13:58)
[2025-01-30 18:39] LABS: Hematocrit 19.3 % (37.0-53.0); Hemoglobin 6.3 g/dL (13.5-17.5)
--- NOTE | 2025-01-30 20:42 | NUR ---
CALLED HOSPITALIST FOR ORDERS FOR NICOTINE PATCH. RECIEVED ORDERS FOR NICOTINE PATCH.
[2025-01-30] MEDS ORDERED: Nicotine 21 MG PATCH TOP SCH (21:10)
[2025-01-31 00:55] VITALS: BP 132/78
--- NOTE | 2025-01-31 04:03 | NUR ---
CALLED HOSPITALIST CONCERNING PT'S LATEST HGB RESULT. HOSPITALIST ORDERED REPEAT H&H IN AM.
[2025-01-31 04:42] VITALS: BP 125/69
--- NOTE | 2025-01-31 05:46 | NUR ---
SHIFT SUMMARY PT HAS BEEN RESTING COMFORTABLY IN BED OVERNIGHT. PT HAS BEEN AOX4, CALM AND COOPERATIVE. PT HAS BEEN SLIGHTLY ANXIOUS BECAUSE HE STATES HE WAS NOT PLANNING TO STAY ANOTHER NIGHT. PT HAS BEEN INDEPENDENT, AMBULATING IN ROOM AND IN THE THRASHER. PT HAD NO COMPLAINTS OVERNIGHT. NO ACUTE EVENTS OVERNIGHT.
[2025-01-31 07:35] VITALS: BP 131/76
[2025-01-31 07:47] LABS: Hematocrit 21.8 % (37.0-53.0); Hemoglobin 7.4 g/dL (13.5-17.5); Mean Corpuscular HGB 31.6 pg (26.0-34.0); Mean Corpuscular HGB Conc 33.9 g/dL (31.5-36.5); Mean Platelet Volume 10.6 fL (9.1-12.4); NRBC ABSOLUTE 0.03 K/mm3 (0.00-0.02); NRBC Auto 1.7 /100 WBC (0.0-0.2); RDW Coefficient Variation 19.6 % (11.7-14.2); RDW Standard Deviation 57.6 fL (35.1-46.3); Red Blood Cell Count 2.34 M/mm3 (4.30-5.90); White Blood Cell Count 1.78 K/mm3 (4.00-11.30)
[2025-01-31 07:48] LABS: Mean Corpuscular Volume 93 fL (80-100)
[2025-01-31 07:54] LABS: Platelet Count 13 K/mm3 (150-400)
[2025-01-31] MEDS ORDERED: NICO21TP TOP (12:21)
--- NOTE | 2025-01-31 13:00 | NUR ---
PT DISCHARGED TO HOME WITH . PT TO FOLLOW-UP WITH ONCOLOGY AT DISCHARGE. ALL VALUABLES RETURNED AND SENT WITH THE PT. DISCHARGE INSTRUCTIONS PROVIDED AND EDUCATED ON AT TIME OF DISCHARGE.
== END 2025-01-31 13:07 | disposition home or self-care (01) ==
LOC: ER 18:38 → MEDS 18:39 → ENPENDDIS 01-31 12:25 → MEDS 01-31 13:07
PROVIDERS: Internal Medicine; Nurse Practitioner Acute Care; Student in an Organized Health Care Education/Training Program; ADMIT Internal Medicine
DX: D61.818 Other pancytopenia (principal); D64.9 Anemia, unspecified; C88.00 Waldenstrom macroglobulinemia not having achieved remission; F17.200 Nicotine dependence, unspecified, uncomplicated; Z88.1 Allergy status to other antibiotic agents; Z90.49 Acquired absence of other specified parts of digestive tract
CPT/HCPCS: 36415; 36430; 80048; 80053; 84484; 85014; 85018; 85025; 85027; 85610; 86850; 86900; 86901; 86923; 93005; 93010; 99285-25; A9270; G0378; J7040; P9016

== ENCOUNTER → 2025-04-10 | Outpatient (CLI) | payer SELFPAY ==
[~2025-04-10] MED LIST changes: +Diclofenac Sodi50 MG PO; +NICO21TP TOP
[2025-04-14 19:12] LABS: ALBUMIN 3.53 g/dL (3.75-5.01); ALPHA 1 GLOBULIN 0.33 g/dL (0.19-0.46); BETA GLOBULIN 0.73 g/dL (0.48-1.10); GAMMA 1.51 g/dL (0.62-1.51); IMMUNOFIXATION IFE Done; IMMUNOGLOBULIN A 5 mg/dL (68-408); IMMUNOGLOBULIN G 295 mg/dL (768-1632); IMMUNOGLOBULIN M 2321 mg/dL (35-263); KAPPA QNT FREE LIGHT CHAINS 459.11 mg/L (3.30-19.40); LAMBDA QNT FREE LIGHT CHAINS 1.55 mg/L (5.71-26.30); TOTAL PROTEIN, SERUM 6.9 g/dL (6.3-8.2)
== END ==
LOC: LAB SHORT 10:49 → LAB 10:49
PROVIDERS: Internal Medicine Hematology & Oncology
DX: C85.10 Unspecified B-cell lymphoma, unspecified site (principal)
CPT/HCPCS: 82784; 83521; 84155; 84165; 86334

== ENCOUNTER → 2025-05-01 | Outpatient (CLI) | payer MEDICARE ==
[2025-05-02 19:27] LABS: HIV 1,2 COMBO ANTIGEN/ANTIBODY Negative (Negative)
[2025-05-03 10:21] LABS: HEPATITIS A ANTIBODY, IGM Negative (Negative); HEPATITIS B CORE ANTIBODY, IGM Negative (Negative); HEPATITIS B SURFACE ANTIGEN Negative (Negative); HEPATITIS C AB CIA INTERP Negative (Negative); HEPATITIS C ANTIBODY CIA INDEX <0.02 IV
== END ==
LOC: LAB 13:14 → LAB SHORT 13:14
PROVIDERS: Internal Medicine Hematology & Oncology
DX: Z11.59 Encounter for screening for other viral diseases (principal)
CPT/HCPCS: 80074; 87389

== ENCOUNTER → 2025-05-22 | Outpatient (CLI) | payer SELFPAY ==
[2025-05-22 15:32] LABS: Hematocrit 36.9 % (37.0-53.0); Hemoglobin 12.2 g/dL (13.5-17.5); Mean Corpuscular HGB Conc 33.1 g/dL (31.5-36.5); Mean Corpuscular Volume 102 fL (80-100); NRBC ABSOLUTE 0.00 K/mm3 (0.00-0.02); NRBC Auto 0.0 /100 WBC (0.0-0.2); Platelet Count 179 K/mm3 (150-400); RDW Coefficient Variation 14.0 % (11.7-14.2); RDW Standard Deviation 52.1 fL (35.1-46.3)
[2025-05-22 15:57] LABS: BAND PERCENT MAN 3 % (0-8); BASOPHILS ABSOLUTE MAN 0.00 K/mm3 (0.00-0.23); BASOPHILS PERCENT MAN 0 % (0-2); EOSINOPHILS ABSOLUTE MAN 0.00 K/mm3 (0.00-0.68); EOSINOPHILS PERCENT MAN 0 % (0-6); LYMPHOCYTES ABSOLUTE MAN 0.96 K/mm3 (0.84-5.20); LYMPHOCYTES PERCENT MAN 13 % (21-46); MONOCYTES ABSOLUTE MAN 0.59 K/mm3 (0.16-1.47); MONOCYTES PERCENT MAN 8 % (4-13); NEUTROPHILS ABSOLUTE MAN 5.84 K/mm3 (1.96-9.15); SEG NEUTROPHILS PERCENT MAN 76 % (41-73)
[2025-05-25 10:52] LABS: ALPHA 1 GLOBULIN 0.38 g/dL (0.19-0.46); ALPHA 2 GLOBULIN 0.74 g/dL (0.48-1.05); BETA GLOBULIN 0.74 g/dL (0.48-1.10); GAMMA 1.20 g/dL (0.62-1.51); IMMUNOFIXATION IFE Done; MONOCLONAL PROTEIN 1.08 g/dL (<=0.00); TOTAL PROTEIN, SERUM 6.4 g/dL (6.3-8.2)
== END | disposition home or self-care (01) ==
LOC: LAB SHORT 09:13 → LAB 09:13
PROVIDERS: Internal Medicine Hematology & Oncology
DX: C85.10 Unspecified B-cell lymphoma, unspecified site (principal)
CPT/HCPCS: 84155; 84165; 85025; 86334

== ENCOUNTER → 2025-06-27 | Outpatient (CLI) | payer MEDICARE ==
[2025-07-01 00:32] LABS: ALPHA 1 GLOBULIN 0.26 g/dL (0.19-0.46); ALPHA 2 GLOBULIN 0.79 g/dL (0.48-1.05); BETA GLOBULIN 0.64 g/dL (0.48-1.10); GAMMA 1.12 g/dL (0.62-1.51); IMMUNOFIXATION IFE Done; KAPPA QNT FREE LIGHT CHAINS 464.78 mg/L (3.30-19.40); KAPPA/LAMBDA FLC RATIO 316.18 (0.26-1.65); LAMBDA QNT FREE LIGHT CHAINS 1.47 mg/L (5.71-26.30); MONOCLONAL PROTEIN 1.02 g/dL (<=0.00); TOTAL PROTEIN, SERUM 6.3 g/dL (6.3-8.2)
== END ==
LOC: LAB SHORT 12:56 → LAB 12:56
PROVIDERS: Internal Medicine Hematology & Oncology
DX: C85.10 Unspecified B-cell lymphoma, unspecified site (principal)
CPT/HCPCS: 82784; 83521; 84155; 84165; 86334

== ENCOUNTER → 2025-07-04 | Outpatient (CLI) | payer MEDICARE ==
[2025-07-04 15:37] LABS: BASOPHILS ABSOLUTE AUTO 0.00 K/mm3 (0.00-0.23); BASOPHILS PERCENT AUTO 0 % (0-2); EOSINOPHILS ABSOLUTE AUTO 0.00 K/mm3 (0.00-0.68); EOSINOPHILS PERCENT AUTO 0 % (0-6); Hematocrit 39.9 % (37.0-53.0); Hemoglobin 12.8 g/dL (13.5-17.5); IMMATURE GRAN ABSOLUTE AUTO 0.01 K/mm3 (0.00-0.10); IMMATURE GRAN PERCENT AUTO 0 % (0-1); LYMPHOCYTES ABSOLUTE AUTO 1.29 K/mm3 (0.84-5.20); LYMPHOCYTES PERCENT AUTO 39 % (21-46); MONOCYTES ABSOLUTE AUTO 1.02 K/mm3 (0.16-1.47); MONOCYTES PERCENT AUTO 31 % (4-13); Mean Corpuscular HGB Conc 32.1 g/dL (31.5-36.5); Mean Corpuscular Volume 100 fL (80-100); NEUTROPHILS ABSOLUTE AUTO 0.95 K/mm3 (1.96-9.15); NEUTROPHILS PERCENT AUTO 29 % (41-73); NRBC ABSOLUTE 0.00 K/mm3 (0.00-0.02); NRBC Auto 0.0 /100 WBC (0.0-0.2); Platelet Count 107 K/mm3 (150-400); RDW Coefficient Variation 14.8 % (11.7-14.2); RDW Standard Deviation 55.4 fL (35.1-46.3)
== END | disposition home or self-care (01) ==
LOC: LAB SHORT 14:10 → LAB 14:10
PROVIDERS: Internal Medicine Hematology & Oncology
DX: C85.10 Unspecified B-cell lymphoma, unspecified site (principal)
CPT/HCPCS: 85025

== ENCOUNTER → 2025-07-11 | Outpatient (CLI) | payer MEDICARE ==
[2025-07-11 16:05] LABS: Alanine Aminotransfer (ALT/SGP 24.0 U/L (12-78); Albumin, Blood 3.1 g/dL (3.4-5.0); Albumin/Globulin Ratio 1.1 (0.8-1.8); Anion Gap 7.0 mmol/L (3-11); Aspartate Aminotrans (AST/SGOT 10.0 U/L (12-37); Bilirubin, Total 0.6 mg/dL (0.1-1.0); Blood Urea Nitrogen 19.0 mg/dL (8-24); CO2, Blood 26.0 mmol/L (21-32); Calcium, Blood 8.6 mg/dL (8.5-10.1); Chloride, Blood 111.0 mmol/L (98-108); Creatinine, Blood 0.69 mg/dL (0.60-1.20); Globulin, Blood 2.9 g/dL (2.2-4.0); Glucose, Blood 104.0 mg/dL (70-99); Phosphorus, Blood 2.7 mg/dL (2.5-4.9); Potassium, Blood 4.0 mmol/L (3.5-5.5); Sodium, Blood 140.0 mmol/L (136-145); Total Protein, Blood 6.0 g/dL (6.4-8.2)
[2025-07-11 16:10] LABS: BASOPHILS ABSOLUTE AUTO 0.01 K/mm3 (0.00-0.23); BASOPHILS PERCENT AUTO 0 % (0-2); EOSINOPHILS ABSOLUTE AUTO 0.00 K/mm3 (0.00-0.68); EOSINOPHILS PERCENT AUTO 0 % (0-6); Hematocrit 38.3 % (37.0-53.0); Hemoglobin 12.5 g/dL (13.5-17.5); IMMATURE GRAN ABSOLUTE AUTO 0.03 K/mm3 (0.00-0.10); IMMATURE GRAN PERCENT AUTO 1 % (0-1); LYMPHOCYTES ABSOLUTE AUTO 0.57 K/mm3 (0.84-5.20); LYMPHOCYTES PERCENT AUTO 13 % (21-46); MONOCYTES ABSOLUTE AUTO 0.28 K/mm3 (0.16-1.47); MONOCYTES PERCENT AUTO 6 % (4-13); Mean Corpuscular HGB Conc 32.6 g/dL (31.5-36.5); Mean Corpuscular Volume 100 fL (80-100); NEUTROPHILS ABSOLUTE AUTO 3.65 K/mm3 (1.96-9.15); NEUTROPHILS PERCENT AUTO 80 % (41-73); NRBC ABSOLUTE 0.00 K/mm3 (0.00-0.02); NRBC Auto 0.0 /100 WBC (0.0-0.2); Platelet Count 114 K/mm3 (150-400); RDW Coefficient Variation 14.9 % (11.7-14.2); RDW Standard Deviation 54.8 fL (35.1-46.3)
== END ==
LOC: LAB 13:59 → LAB SHORT 13:59
PROVIDERS: Internal Medicine Hematology & Oncology
DX: C85.10 Unspecified B-cell lymphoma, unspecified site (principal)
CPT/HCPCS: 80053; 84100; 85025

== ENCOUNTER → 2025-07-17 | Outpatient (CLI) | payer MEDICARE ==
[2025-07-20 20:18] LABS: ALPHA 1 GLOBULIN 0.27 g/dL (0.19-0.46); ALPHA 2 GLOBULIN 0.69 g/dL (0.48-1.05); BETA GLOBULIN 0.67 g/dL (0.48-1.10); GAMMA 1.12 g/dL (0.62-1.51); IMMUNOFIXATION IFE Done; MONOCLONAL PROTEIN 1.01 g/dL (<=0.00); TOTAL PROTEIN, SERUM 6.3 g/dL (6.3-8.2)
== END ==
LOC: LAB SHORT 14:43 → LAB 14:43
PROVIDERS: Internal Medicine Hematology & Oncology
DX: C85.10 Unspecified B-cell lymphoma, unspecified site (principal)
CPT/HCPCS: 84155; 84165; 86334

== ENCOUNTER → 2025-07-31 | Outpatient (CLI) | payer MEDICARE ==
[2025-08-01 00:21] LABS: Alanine Aminotransfer (ALT/SGP 27.0 U/L (12-78); Albumin, Blood 3.5 g/dL (3.4-5.0); Albumin/Globulin Ratio 1.2 (0.8-1.8); Anion Gap 8.0 mmol/L (3-11); Aspartate Aminotrans (AST/SGOT 14.0 U/L (12-37); Bilirubin, Total 0.4 mg/dL (0.1-1.0); Blood Urea Nitrogen 20.0 mg/dL (8-24); CO2, Blood 26.0 mmol/L (21-32); Calcium, Blood 9.0 mg/dL (8.5-10.1); Chloride, Blood 110.0 mmol/L (98-108); Creatinine, Blood 0.62 mg/dL (0.60-1.20); Globulin, Blood 2.8 g/dL (2.2-4.0); Glucose, Blood 114.0 mg/dL (70-99); Phosphorus, Blood 3.3 mg/dL (2.5-4.9); Potassium, Blood 4.1 mmol/L (3.5-5.5); Sodium, Blood 140.0 mmol/L (136-145); Total Protein, Blood 6.3 g/dL (6.4-8.2)
[2025-08-03 10:15] LABS: ALPHA 1 GLOBULIN 0.30 g/dL (0.19-0.46); ALPHA 2 GLOBULIN 0.64 g/dL (0.48-1.05); BETA GLOBULIN 0.71 g/dL (0.48-1.10); GAMMA 0.76 g/dL (0.62-1.51); IMMUNOFIXATION IFE Done; MONOCLONAL PROTEIN 0.67 g/dL (<=0.00); TOTAL PROTEIN, SERUM 6.3 g/dL (6.3-8.2)
== END ==
LOC: LAB 09:00 → LAB SHORT 09:00
PROVIDERS: Internal Medicine Hematology & Oncology
DX: C85.10 Unspecified B-cell lymphoma, unspecified site (principal)
CPT/HCPCS: 80053; 84100; 84155; 84165; 86334

== ENCOUNTER → 2025-09-04 | Outpatient (CLI) | payer MEDICARE ==
[2025-09-04 13:25] LABS: BASOPHILS ABSOLUTE AUTO 0.02 K/mm3 (0.00-0.23); BASOPHILS PERCENT AUTO 0 % (0-2); EOSINOPHILS ABSOLUTE AUTO 0.00 K/mm3 (0.00-0.68); EOSINOPHILS PERCENT AUTO 0 % (0-6); Hematocrit 38.3 % (37.0-53.0); Hemoglobin 12.6 g/dL (13.5-17.5); IMMATURE GRAN ABSOLUTE AUTO 0.42 K/mm3 (0.00-0.10); IMMATURE GRAN PERCENT AUTO 6 % (0-1); LYMPHOCYTES ABSOLUTE AUTO 0.83 K/mm3 (0.84-5.20); LYMPHOCYTES PERCENT AUTO 12 % (21-46); MONOCYTES ABSOLUTE AUTO 1.09 K/mm3 (0.16-1.47); MONOCYTES PERCENT AUTO 16 % (4-13); Mean Corpuscular HGB Conc 32.9 g/dL (31.5-36.5); Mean Corpuscular Volume 95 fL (80-100); NEUTROPHILS ABSOLUTE AUTO 4.63 K/mm3 (1.96-9.15); NEUTROPHILS PERCENT AUTO 66 % (41-73); NRBC ABSOLUTE 0.00 K/mm3 (0.00-0.02); NRBC Auto 0.0 /100 WBC (0.0-0.2); Platelet Count 176 K/mm3 (150-400); RDW Coefficient Variation 13.8 % (11.7-14.2); RDW Standard Deviation 48.3 fL (35.1-46.3)
[2025-09-04 19:23] LABS: Alanine Aminotransfer (ALT/SGP 22.0 U/L (12-78); Albumin, Blood 3.1 g/dL (3.4-5.0); Albumin/Globulin Ratio 1.1 (0.8-1.8); Anion Gap 10.0 mmol/L (3-11); Aspartate Aminotrans (AST/SGOT 11.0 U/L (12-37); Bilirubin, Total 0.5 mg/dL (0.1-1.0); Blood Urea Nitrogen 19.0 mg/dL (8-24); CO2, Blood 25.0 mmol/L (21-32); Calcium, Blood 9.0 mg/dL (8.5-10.1); Chloride, Blood 106.0 mmol/L (98-108); Creatinine, Blood 0.68 mg/dL (0.60-1.20); Globulin, Blood 2.7 g/dL (2.2-4.0); Glucose, Blood 117.0 mg/dL (70-99); Phosphorus, Blood 3.8 mg/dL (2.5-4.9); Potassium, Blood 4.2 mmol/L (3.5-5.5); Sodium, Blood 137.0 mmol/L (136-145); Total Protein, Blood 5.8 g/dL (6.4-8.2); Uric Acid, Blood 4.0 mg/dL (3.5-7.2)
== END | disposition home or self-care (01) ==
LOC: LAB SHORT 12:52 → LAB 12:52
PROVIDERS: Internal Medicine Hematology & Oncology
DX: C85.10 Unspecified B-cell lymphoma, unspecified site (principal)
CPT/HCPCS: 80053; 84100; 84550; 85025

== ENCOUNTER → 2025-09-25 | Outpatient (CLI) | payer MEDICARE ==
[2025-09-25 16:30] LABS: BASOPHILS ABSOLUTE AUTO 0.01 K/mm3 (0.00-0.23); BASOPHILS PERCENT AUTO 0 % (0-2); EOSINOPHILS ABSOLUTE AUTO 0.02 K/mm3 (0.00-0.68); EOSINOPHILS PERCENT AUTO 0 % (0-6); Hematocrit 36.6 % (37.0-53.0); Hemoglobin 11.6 g/dL (13.5-17.5); IMMATURE GRAN ABSOLUTE AUTO 0.05 K/mm3 (0.00-0.10); IMMATURE GRAN PERCENT AUTO 1 % (0-1); LYMPHOCYTES ABSOLUTE AUTO 1.21 K/mm3 (0.84-5.20); LYMPHOCYTES PERCENT AUTO 19 % (21-46); MONOCYTES ABSOLUTE AUTO 1.09 K/mm3 (0.16-1.47); MONOCYTES PERCENT AUTO 17 % (4-13); Mean Corpuscular HGB Conc 31.7 g/dL (31.5-36.5); Mean Corpuscular Volume 93 fL (80-100); NEUTROPHILS ABSOLUTE AUTO 4.00 K/mm3 (1.96-9.15); NEUTROPHILS PERCENT AUTO 63 % (41-73); NRBC ABSOLUTE 0.00 K/mm3 (0.00-0.02); NRBC Auto 0.0 /100 WBC (0.0-0.2); Platelet Count 154 K/mm3 (150-400); RDW Coefficient Variation 14.6 % (11.7-14.2); RDW Standard Deviation 49.8 fL (35.1-46.3)
[2025-09-25 21:04] LABS: Alanine Aminotransfer (ALT/SGP 28.0 U/L (12-78); Albumin, Blood 2.6 g/dL (3.4-5.0); Albumin/Globulin Ratio 0.9 (0.8-1.8); Anion Gap 11.0 mmol/L (3-11); Aspartate Aminotrans (AST/SGOT 13.0 U/L (12-37); Bilirubin, Total 0.4 mg/dL (0.1-1.0); Blood Urea Nitrogen 11.0 mg/dL (8-24); CO2, Blood 24.0 mmol/L (21-32); Calcium, Blood 8.7 mg/dL (8.5-10.1); Chloride, Blood 104.0 mmol/L (98-108); Creatinine, Blood 0.65 mg/dL (0.60-1.20); Globulin, Blood 3.0 g/dL (2.2-4.0); Glucose, Blood 100.0 mg/dL (70-99); Phosphorus, Blood 4.2 mg/dL (2.5-4.9); Potassium, Blood 4.1 mmol/L (3.5-5.5); Sodium, Blood 135.0 mmol/L (136-145); Total Protein, Blood 5.6 g/dL (6.4-8.2)
[2025-09-28 21:33] LABS: ALPHA 1 GLOBULIN 0.57 g/dL (0.19-0.46); ALPHA 2 GLOBULIN 1.15 g/dL (0.48-1.05); BETA GLOBULIN 0.72 g/dL (0.48-1.10); GAMMA 0.45 g/dL (0.62-1.51); IMMUNOFIXATION IFE Done; MONOCLONAL PROTEIN 0.37 g/dL (<=0.00); TOTAL PROTEIN, SERUM 5.6 g/dL (6.3-8.2)
== END ==
LOC: LAB 09:30 → LAB SHORT 09:30
PROVIDERS: Internal Medicine Hematology & Oncology
DX: C85.10 Unspecified B-cell lymphoma, unspecified site (principal)
CPT/HCPCS: 80053; 84100; 84155; 84165; 85025; 86334

== ENCOUNTER → 2025-10-16 | Outpatient (CLI) | payer MEDICARE ==
[2025-10-16 14:39] LABS: BASOPHILS ABSOLUTE AUTO 0.02 K/mm3 (0.00-0.23); BASOPHILS PERCENT AUTO 0 % (0-2); EOSINOPHILS ABSOLUTE AUTO 0.02 K/mm3 (0.00-0.68); EOSINOPHILS PERCENT AUTO 0 % (0-6); Hematocrit 34.5 % (37.0-53.0); Hemoglobin 10.7 g/dL (13.5-17.5); IMMATURE GRAN ABSOLUTE AUTO 0.05 K/mm3 (0.00-0.10); IMMATURE GRAN PERCENT AUTO 1 % (0-1); LYMPHOCYTES ABSOLUTE AUTO 0.98 K/mm3 (0.84-5.20); LYMPHOCYTES PERCENT AUTO 15 % (21-46); MONOCYTES ABSOLUTE AUTO 0.88 K/mm3 (0.16-1.47); MONOCYTES PERCENT AUTO 13 % (4-13); Mean Corpuscular HGB Conc 31.0 g/dL (31.5-36.5); Mean Corpuscular Volume 90 fL (80-100); NEUTROPHILS ABSOLUTE AUTO 4.68 K/mm3 (1.96-9.15); NEUTROPHILS PERCENT AUTO 71 % (41-73); NRBC ABSOLUTE 0.00 K/mm3 (0.00-0.02); NRBC Auto 0.0 /100 WBC (0.0-0.2); Platelet Count 257 K/mm3 (150-400); RDW Coefficient Variation 16.3 % (11.7-14.2); RDW Standard Deviation 54.2 fL (35.1-46.3)
[2025-10-16 16:20] LABS: Alanine Aminotransfer (ALT/SGP 21.0 U/L (12-78); Albumin, Blood 2.4 g/dL (3.4-5.0); Albumin/Globulin Ratio 0.8 (0.8-1.8); Anion Gap 11.0 mmol/L (3-11); Aspartate Aminotrans (AST/SGOT 12.0 U/L (12-37); Bilirubin, Total 0.2 mg/dL (0.1-1.0); Blood Urea Nitrogen 13.0 mg/dL (8-24); CO2, Blood 23.0 mmol/L (21-32); Calcium, Blood 8.8 mg/dL (8.5-10.1); Chloride, Blood 106.0 mmol/L (98-108); Creatinine, Blood 0.72 mg/dL (0.60-1.20); Globulin, Blood 3.0 g/dL (2.2-4.0); Glucose, Blood 134.0 mg/dL (70-99); Phosphorus, Blood 3.8 mg/dL (2.5-4.9); Potassium, Blood 3.9 mmol/L (3.5-5.5); Sodium, Blood 136.0 mmol/L (136-145); Total Protein, Blood 5.4 g/dL (6.4-8.2)
[2025-10-19 19:08] LABS: ALPHA 1 GLOBULIN 0.53 g/dL (0.19-0.46); ALPHA 2 GLOBULIN 1.15 g/dL (0.48-1.05); BETA GLOBULIN 0.63 g/dL (0.48-1.10); GAMMA 0.26 g/dL (0.62-1.51); IMMUNOFIXATION IFE Done; MONOCLONAL PROTEIN 0.22 g/dL (<=0.00); TOTAL PROTEIN, SERUM 5.0 g/dL (6.3-8.2)
== END ==
LOC: LAB 12:53 → LAB SHORT 12:53
PROVIDERS: Internal Medicine Hematology & Oncology
DX: C85.10 Unspecified B-cell lymphoma, unspecified site (principal)
CPT/HCPCS: 80053; 84100; 84155; 84165; 85025; 86334